=== PATIENT | female | born 1985 | race Caucasian/White ===

== ENCOUNTER 2020-04-27 06:13 | Outpatient (REF) | payer BC, SELFPAY ==
[2020-04-27 11:12] LABS: Hematocrit 39.2 % (37-47); Hemoglobin 12.8 g/dl (12.0-16.0); Mean Corpuscular HGB Conc 32.7 g/dl (31.0-35.0); Mean Corpuscular Hemoglobin 30.8 pg (27.0-33.0); Mean Corpuscular Volume 94.5 fL (80-98); Mean Platelet Volume 11.5 fL (9.4-12.3); Platelet Count 259 X10*3/uL (160-400); Red Blood Count 4.15 X10*6/uL (4.20-5.50); Red Cell Distribution Width 12.5 % (11.0-16.0); White Blood Count 4.6 X10*3/uL (4.8-10.8)
[2020-04-27 11:27] LABS: Glucose Urine UA NEG (NEG); Leukocyte Esterase Urine NEG (NEG); Nitrite Urine NEG (NEG); Specific Gravity - Urine 1.015 (1.005-1.025); Urine Blood NEG (NEG); Urine Ketones NEG (NEG); Urine Protein NEG (NEG-TRACE)
[2020-04-27 11:33] LABS: Appearance Urine CLOUDY; Color Urine YELLOW
[2020-04-27 11:51] LABS: Alanine Aminotransferase 16 U/L (0-31); Albumin Level 4.4 g/dL (3.5-5.0); Alkaline Phosphatase 72 U/L (39-117); Anion Gap 11 (12-20); Aspartate Amino Transferase 22 U/L (5-31); Bilirubin Direct 0.3 mg/dL (0.0-0.5); Bilirubin Total 0.7 mg/dL (0.0-1.0); Blood Urea Nitrogen 12 mg/dL (9-16); Calcium 9.1 mg/dL (8.4-10.2); Carbon Dioxide 31 mmol/L (22-29); Chloride 103 mmol/L (96-108); Cholesterol 150 mg/dL; Estimated Glomerular Filt Rate > 60; Glucose Fasting 84 mg/dL (60-99); HDL Cholesterol 62 mg/dL; LDL Cholesterol Calculated 76 mg/dl; Potassium 4.4 mmol/l (3.3-5.1); Sodium 141 mmol/L (135-145); Total Protein 6.4 g/dL (6.5-8.0); Triglycerides 62 mg/dL
[2020-04-27 11:58] LABS: Thyroid Stimulating Hormone 1.83 mIU/mL (0.32-4.0)
[2020-04-27 12:06] LABS: TSH reflex Free T4 1.84 mIU/mL (0.32-4.0)
== END 2020-04-27 06:14 | disposition home or self-care (01) ==
LOC: HO.HMGCLDS 06:13
PROVIDERS: PCP Internal Medicine; Visit Provider Hospitalist
DX: Z00.00 Encounter for general adult medical examination without abnormal findings (principal)
CPT/HCPCS: 36415; 80048; 80061; 80076; 81003; 84443; 85027

== ENCOUNTER 2020-07-06 07:57 | Outpatient (REF) | payer BC, SELFPAY ==
[2020-07-06 10:44] LABS: HCG Quantitative < 2 mIU/mL; TSH reflex Free T4 1.91 mIU/mL (0.32-4.0)
[2020-07-07 06:58] LABS: Prolactin 15.7 ng/mL
== END 2020-07-06 07:58 | disposition home or self-care (01) ==
LOC: HO.LAB 07:57
PROVIDERS: PCP Internal Medicine; Referring Provider Internal Medicine; Visit Provider Advanced Practice Midwife
DX: Z01.419 Encounter for gynecological examination (general) (routine) without abnormal findings (principal); N64.3 Galactorrhea not associated with childbirth
CPT/HCPCS: 84146; 84443; 84702

== ENCOUNTER 2020-10-15 08:46 | Outpatient (REF) | payer BC, SELFPAY | END 2020-10-15 08:47 | disposition home or self-care (01) | LOC: HO.LAB 08:46 | PROVIDERS: Visit Provider Internal Medicine | DX: Z20.822 Contact with and (suspected) exposure to COVID-19 (principal) | CPT/HCPCS: 36415; C9803; U0003; U0005 ==

== ENCOUNTER 2020-10-19 14:56 | Outpatient (REF) | payer BC, SELFPAY ==
[2020-10-20 08:44] LABS: CT PCR NOT DETECTED (Not Detect.); NG PCR NOT DETECTED (Not Detect.)
== END 2020-10-19 14:57 | disposition home or self-care (01) ==
LOC: HO.LAB 14:56
PROVIDERS: Visit Provider Advanced Practice Midwife
DX: Z30.433 Encounter for removal and reinsertion of intrauterine contraceptive device (principal)
CPT/HCPCS: 58300; 58301; 81025; 87491; 87591

== ENCOUNTER → 2021-02-24 15:19 | Outpatient (BNVA) | payer BC, SELFPAY | PROVIDERS: PCP Internal Medicine; Visit Provider Surgery | DX: K64.8 Other hemorrhoids (principal) | CPT/HCPCS: 46600 ==

== ENCOUNTER 2021-03-15 07:05 | Day surgery (SDC) | payer BC, SELFPAY ==
[2021-03-08 09:30] VITALS: BMI 22.1
--- NOTE | 2021-03-14 08:35 | P.CONAN_ITS ---
Documented by User: Savana Jin NP 03/14/21 08:36 HPI - Anesthesia Eval Consult details Narrative: 36yo F for EUA, Hemorrhoidectomy PMFSH Active Problems Active Problems: All Active Problems (Updated 03/08/21 @ 09:29 by Elizabeth Macedo RN) Well woman exam with routine gynecological exam (Acute) Encounter for removal and reinsertion of intrauterine contraceptive device (IUD) (Acute) Encounter for insertion of mirena IUD (Acute) Hemorrhoid (Acute) Prolapsed hemorrhoids (Acute) Galactorrhea (Acute) Past Medical History Medical History Carpal tunnel syndrome Constipation COVID-19 vaccine series completed Depression Galactorrhea Prolapsed hemorrhoids Family History Family History Paternal Grandmother Breast cancer Cervical cancer Paternal Grandfather Colon cancer Surgical History Surgical History No pertinent past surgical history Social History Social History Are you a primary respiratory care specialist to a significant other at home: No Do you presently have visiting nurse or other home services: No Alcohol intake: never Patient Tobacco Use Status: Never used Tobacco Use of substances other than those prescribed or required for medical reasons: No Substance Use Type Other:: Former Binge drinker- no ETOH for > 1 yr Have you been hit, kicked, punched, or otherwise hurt by someone within the past year? If so, by whom?: No Are you DNR?: No Advance Directives: No Advance Directives Information Provided: No Advance Directives on File: No Recently lost weight without trying: No Eating poorly because of decreased appetite: No Nutrition Risks: No Nutritional Risk Patient : No FDLMP: yrs ago : No Poor oral hygiene: No Sexual orientation: Straight/Heterosexual Gender identity: Female Meds Allergies Allergy/AdvReac Type Severity Reaction Status Date / Time No Known Allergies Allergy Verified 02/24/21 15:34 Home Medications Medication Instructions Recorded Confirmed Last Taken Type fluoxetine 40 mg capsule 40 mg PO DAILY 07/06/20 03/08/21 Unknown History gabapentin 300 mg capsule 300 mg PO BEDTIME 07/06/20 03/08/21 Unknown History lamotrigine 200 mg tablet 200 mg PO DAILY 07/06/20 03/08/21 Unknown History hydrocortisone acetate 25 mg 25 mg [place] TID ea 07/09/20 03/08/21 Unknown History rectal suppository levonorgestrel 20 mcg/24 hours (6 INTRAUTERINE 10/19/20 02/24/21 Unknown History yrs) 52 mg intrauterine device (Mirena) quetiapine 50 mg tablet 50 mg PO DAILY 10/19/20 03/08/21 Unknown History Exam Exam Date and Time: March 14, 2021 0835 Height,Weight and Vital Signs: Height 5 ft 8 in Weight 65.998 kg Assessment and Plan Assessment Anesthesia Assessment: Chart Reviewed Documented by User: Tia Winston MD 03/15/21 07:45 [facility] Past Medical History Medical History Carpal tunnel syndrome Constipation COVID-19 vaccine series completed Depression Galactorrhea Prolapsed hemorrhoids Family History Family History Paternal Grandmother Breast cancer Cervical cancer Paternal Grandfather Colon cancer Surgical History Surgical History No pertinent past surgical history History of Problems with Anesthesia: No Social History Social History Are you a primary respiratory care specialist to a significant other at home: No Do you presently have visiting nurse or other home services: No Alcohol intake: never Patient Tobacco Use Status: Never used Tobacco Use of substances other than those prescribed or required for medical reasons: No Substance Use Type Other:: Former Binge drinker- no ETOH for > 1 yr Have you been hit, kicked, punched, or otherwise hurt by someone within the past year? If so, by whom?: No Are you DNR?: No Advance Directives: No Advance Directives Information Provided: No Advance Directives on File: No Recently lost weight without trying: No Eating poorly because of decreased appetite: No Nutrition Risks: No Nutritional Risk Patient : No FDLMP: yrs ago : No Poor oral hygiene: No Sexual orientation: Straight/Heterosexual Gender identity: Female Meds Allergies Allergy/AdvReac Type Severity Reaction Status Date / Time No Known Allergies Allergy Verified 02/24/21 15:34 Home Medications Medication Instructions Recorded Confirmed Last Taken Type fluoxetine 40 mg capsule 40 mg PO DAILY 07/06/20 03/08/21 Unknown History gabapentin 300 mg capsule 300 mg PO BEDTIME 07/06/20 03/08/21 Unknown History lamotrigine 200 mg tablet 200 mg PO DAILY 07/06/20 03/08/21 Unknown History hydrocortisone acetate 25 mg 25 mg [place] TID ea 07/09/20 03/08/21 Unknown History rectal suppository levonorgestrel 20 mcg/24 hours (6 INTRAUTERINE 10/19/20 02/24/21 Unknown History yrs) 52 mg intrauterine device (Mirena) quetiapine 50 mg tablet 50 mg PO DAILY 10/19/20 03/08/21 Unknown History Exam Airway Mallampati Class: I TM Dist: >3cm Neck ROM: Full Loose/Missing/Broken Teeth: No Heart: RRR Lungs: CTA Assessment and Plan Assessment Anesthesia Assessment: Anesthesia Plan Discussed Final Anesthetic Review History of Problems with Anesthesia: No NPO: Yes ASA Class: I Final Preanesthetic Review: Meds/Allgs Chart Reviewed, Consent Obtained/Reviewed and Anes Risks/Benef Reviewed Patient Risk: Low Procedure Risk: Intermediate Anesthetic Plan Anesthetic Plan: GA Disposition: Standard PACU
[2021-03-15] VITALS (10 sets, daily range): BP systolic 93–127; BP diastolic 43–67; PULSE 69–84; RESP 16–18; TEMP 36.2–36.5; O2SAT 94–100
[2021-03-15 07:22] LABS: UPreg QC Valid YES; Urine Pregnancy NEGATIVE (NEGATIVE)
--- NOTE | 2021-03-15 07:33 | MHC.SHP ---
Pre-Procedural Eval Section A Date of Service: 03/15/21 Section B Chief Complaint: Prolapsed hemorrhoids Allergies: Allergies Allergy/AdvReac Type Severity Reaction Status Date / Time No Known Allergies Allergy Verified 02/24/21 15:34 Plan I have reviewed the history and physical and performed a pertinent physical examination on my patient. No changes have occurred unless specified.
[2021-03-15] MEDS: Lactated Ringers 1,000 ML 100 ML IVCONT (07:36)
--- NOTE | 2021-03-15 08:56 | P.OP_ITS ---
Operative Note Operative Note Date of Service: 03/15/21 Narrative: Preop diagnosis: internal and external hemorrhoids, with prolapse and pain Postop diagnosis: The same Procedure: Exam under anesthesia hemorrhoidectomy x2 columns Surgeon: Franc Padron MD Explosives Handler: ZHENG Jarvis student The patient is a 56-year-old female who has had chronic problems with hemorrhoids with frequent prolapse, pain and discomfort. 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 She understood technique of the procedure. She was aware of the risks, benefits, and alternatives She was brought to the operating room and placed in prone heather-knife position under general anesthesia via endotracheal tube. The buttocks were retracted with wide tape laterally. The perianal area was prepped and draped in the usual sterile fashion. A surgical time-out was done. The patient received Cefotan 2 g IV preoperatively I infiltrated the perianal area with lidocaine 1%. Examination of the perianal area revealed small external hemorrhoids. I inserted the Gold- Pitts retractor and examined the anal canal circumferentially. There was note of relatively bulky mixed internal and external hemorrhoidal columns, 1 on the left and 1 on the right. This also appeared to prolapse easily. I applied a Cope grasper at the hemorrhoidal column on the left. I made a urfpym-sc-kxacu stitch at its pedicle distal to the dentate line with a chromic 3-0. I made an incision around this hemorrhoidal column to the perianal skin using blade 15. And excised this hemorrhoidal column above the plane of sphincters using scissors, with care being taken so as to ensure that we were staying above the plane of the sphincter muscles. I closed this incision with a running chromic 3-0 stitch with additional hemostatic tlmnil-nz-smrxa sutures being placed I then applied a Cope grasper again at the hemorrhoidal column on the right side. I made a bfybik-hv-vgfme stitch at its pedicle using chromic 3-0, and made incision around this hemorrhoidal column to the perianal skin. I excised this hemorrhoidal column above the plane of sphincters using scissors. I closed this incision with a running chromic 3-0 stitch. I observed for hemostasis. Once hemostasis was ensured, I proceeded to infiltrate the perianal area with Marcaine 0.5% for postop analgesia. I applied a Gelfoam packing into the anal canal for additional hemostasis The procedure was then completed The patient tolerated procedure well. There were no complication noted. Initial and final counts of sponges and instruments were correct. Estimated blood loss about 20 cc. The patient was then extubated without difficulty and transferred to the recovery room with stable vital signs.
--- NOTE | 2021-03-15 09:01 | P.BOP_ITS ---
Brief Operative Note Date of Service: 03/15/21 Pre-op diagnosis: Internal and external hemorrhoid columns with prolapse Post-op diagnosis: same Procedure: Exam under anesthesia hemorrhoidectomy x2 Surgeon: Franc Padron MD Anesthesia: GETA Was an Critical Care Technician used for this Procedure?: No Estimated blood loss (mL): 20 Pathology: other (Hemorrhoids) Condition: stable Disposition: PACU
[2021-03-15] MEDS: oxyCODONE HCl Immed Release 5 MG TABLET 10 MG PO (09:12)
[2021-03-15] MEDS: fentaNYL citrate/PF 100 MCG/2 ML VIAL 50 MCG IVPUSH (09:38)
== END 2021-03-15 11:05 | disposition home or self-care (01) ==
PROVIDERS: Nurse Practitioner; Visit Provider Surgery
PROC: (CPT 46260; principal; 2021-03-15 08:40)
DX: K64.8 Other hemorrhoids (principal); K64.4 Residual hemorrhoidal skin tags; K59.00 Constipation, unspecified; F32.9 Major depressive disorder, single episode, unspecified; Z79.899 Other long term (current) drug therapy
CPT/HCPCS: 46260; 81025; 88304; J0131; J1100; J1885; J2250; J2405; J3010

== ENCOUNTER → 2021-03-24 09:45 | Outpatient (BNVA) | payer BC, SELFPAY | PROVIDERS: Referring Provider Internal Medicine; Visit Provider Surgery ==

== ENCOUNTER 2025-06-11 09:24 | Outpatient (AMB) | payer BC, SELFPAY ==
--- NOTE | 2025-06-11 09:29 | MHC.OFFVIS ---
Intake Visit Reasons: 6 months f/u Allergies No Known Allergies Allergy (Verified 06/11/25 09:33) Medication List - Last Reconciled 06/11/25 by Maria Esther Ch CNP docusate sodium (Colace) 100 mg PO BID fluoxetine 40 mg PO DAILY gabapentin 600 mg PO DAILY hydrocortisone acetate 25 mg SD TID ibuprofen 600 mg PO Q6H PRN lamotrigine 200 mg PO DAILY levonorgestrel (Mirena) intrauterine oxycodone-acetaminophen 5-325 mg (Percocet) 1 tab PO Q4-6H PRN quetiapine 50 mg PO DAILY HPI Comments Details: She was doing okay. 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 Symptoms were well controlled with gabapentin 600mg at bedtime, which her PCP has been filling. She was not hitting or kicking her or the wall in her sleep anymore. Sleep was okay. No medication side effects. Beginning in 10/2024, her noted that she was kicking and punching in her sleep more. She sometimes woke herself up during sleep from punching wall.?Memory stable.? She has a long h/o kicking and violent body jerks and movements in sleep, was sleeping on a couch for 6 yrs. 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 It was also making her drowsy. She has a history of depression, Bipolar disorder, and GERD. She has never had a seizure. No bouts of incontinence during these jerking movements. Some restless feeling in legs at times when relaxing on couch at end of day. Sleeps from 8pm to 3.30am. Hx of some short term memory problems, disorganized and distracted easily. Able to finish project if undisturbed. 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 [facility] Medical History (Updated 06/11/25 @ 09:31 by Maria Esther Ch CNP) REM sleep behavior disorder RLS (restless legs syndrome) COVID-19 vaccine series completed Prolapsed hemorrhoids Galactorrhea Depression Carpal tunnel syndrome Constipation Surgical History History of hemorrhoidectomy No pertinent past surgical history Family History Paternal Grandmother Breast cancer Cervical cancer Paternal Grandfather Colon cancer Social History Are you a primary skin care instructor to a significant other at home: No Do you presently have visiting nurse or other home services: No Alcohol intake: never Comment: medicated for pain, see MAR Patient Tobacco Use Status: Never used Tobacco Sexual orientation: Straight/Heterosexual Gender identity: Female Female Reproductive History Menstrual Age of Menarche: 13 Review of Systems Const Denies chills, Denies daytime sleepiness, Denies difficulty sleeping, Reports fatigue, Denies fever(s), Denies frequent falls, Denies headache(s), Denies increased appetite, Denies poor appetite, Denies snoring, Denies weakness, Denies weight gain and Denies weight loss Eyes Denies loss of vision ENT Denies vertigo, Denies dizziness, Denies headache(s) and Denies neck pain Card Denies chest pain at rest, Denies chest pain with activity, Denies syncope, Denies leg edema, Denies palpitations, Denies dyspnea and Denies dyspnea on exertion Resp Denies cough, Denies dyspnea, Denies dyspnea on exertion and Denies snoring GI Denies abdominal pain, Denies constipation, Denies heartburn, Denies diarrhea and Denies nausea Denies urinary frequency, Denies urinary incontinence and Denies urinary urgency Musc Denies abnormal gait, Denies back pain, Denies myalgias, Denies arthralgias, Denies neck pain, Denies numbness and Denies tingling Neuro Denies abnormal gait, Denies vertigo, Denies dizziness, Denies syncope, Denies frequent falls, Denies headache(s), Denies lack of coordination, Denies loss of vision, Denies memory loss, Denies numbness, Denies Other visual disturbances, Reports restless legs, Denies seizure-like activity, Denies tingling, Denies paresthesias, Denies tremor(s) and Denies weakness Psych Reports anxiety, Denies depression, Denies auditory hallucinations, Denies memory loss and Denies visual hallucinations Endo Reports fatigue and Denies palpitations Physical Exam Const Other: General Appearance:? normal, in no acute distress. Heart:? S1, S2 normal, no murmurs. Lungs:? clear anteriorly and posteriorly. Musculoskeletal:? normal. Extremities:? no edema. Psych:? alert, oriented, cognitive function intact, cooperative with exam. Neuro Other: Abnormal Neurological Findings:?none.? Mental Status: alert and oriented X 3. Normal attention, orientation, memory, and affect. Cranial Nerves: Pupils are equal, round, and reactive to light. External ocular muscles are intact. Visual aguila are full, no ptosis. Face is symmetrical, no facial weakness or droop. Facial sensations are normal. Tongue protrudes in midline. Palate elevates symmetrically. Shoulder shrugging is normal Motor Examination: Normal muscle tone, bulk and strength. No atrophy or fasciculations. No drift of the extended upper extremities. DTR 2+. Plantars are flexor. Sensory Exam: Normal light touch, temperature, pinprick, vibration, and joint-position sensations. Rhomberg sign is absent. Coordination: No ataxia. No titubation. Gait Exam: Within normal limits. Cerebellar Signs: [id number] and upej-[id number] is normal. Extrapyramidal System: No tremor, rigidity with normal facial expressions. No bradykinesia. No bradyphrenia. Normal arm swing and posture. No propulsion or retropulsion. Speech: Normal. Results Reviewed Results Reviewed: 09/16/14 This awake and light sleep EEG is within normal limits Assessment & Plan Assessment & Plan (1) REM sleep behavior disorder: Code(s): G47.52 - REM sleep behavior disorder Category: Medical Plan: Symptoms were well controlled with gabapentin 600mg at bedtime, which her PCP has been filling and she did not have any other concerns at this time. Follow up as needed. (2) RLS (restless legs syndrome): Code(s): G25.81 - Restless legs syndrome Category: Medical Plan . Coding Level of Care Code Est Pt Level 3 (41206) Diagnoses REM sleep behavior disorder G47.52 RLS (restless legs syndrome) G25.81
--- OUTSIDE RECORDS SUMMARY | 2025-06-11 12:38 | XMS_ITS | Patient Health Record ---
Author Organization [facility] Address [address] [id number] Care Team Providers Care Ultrasonic Solderer Name Role Phone Jennifer Tomlin Primary Care Provider [facility] Unavailable [phone] Allergies No Known Allergies Results Component Value Reference Range Notes CBC With Differential/Platel [id number] Reviewed date:09/17/2024 11:05:10 PM Interpretation: Performing Lab:[facility] [place], [address] [place] [address], [place], Phone - [phone], Director - Brooke Notes/Report: WBC 5.4 3.4-10.8 x10E3/uL RBC 4.19 3.77-5.28 x10E6/uL Hemoglobin 12.9 11.1-15.9 g/dL Hematocrit 38.2 34.0-46.6 % MCV 91 79-97 fL MCH 30.8 26.6-33.0 pg MCHC 33.8 31.5-35.7 g/dL RDW 11.6 11.7-15.4 % Platelets 290 150-450 x10E3/uL Neutrophils 54 Not Estab. % Lymphs 36 Not Estab. % Monocytes 7 Not Estab. % Eos 2 Not Estab. % Basos 1 Not Estab. % Neutrophils (Absolute) 3.0 1.4-7.0 x10E3/uL Lymphs (Absolute) 1.9 0.7-3.1 x10E3/uL Monocytes(Absolute) 0.4 0.1-0.9 x10E3/uL Eos (Absolute) 0.1 0.0-0.4 x10E3/uL Baso (Absolute) 0.1 0.0-0.2 x10E3/uL Immature Granulocytes 0 Not Estab. % Immature Grans (Abs) 0.0 0.0-0.1 x10E3/uL Measles/Mumps/Rubella Immuni [id number] Reviewed date:09/17/2024 11:05:11 PM Interpretation: Performing [facility] [place], [address] [facility], Phone - [phone], Director - [facility] Notes/Report: Rubella Antibodies, IgG 2.87 Immune >0.99 inde x Non-immune <0.90 Equivocal 0.90 - 0.99 Immune >0.99 Measles Antibodies, IgG 21.7 Immune >16.4 AU/m L Negative <13.5 Equivocal 13.5 - 16.4 Positive >16.4 Presence of antibodies to Rubeola is presumptive evidence of immunity except when acute infection is suspected. Mumps Abs, IgG 73.7 Immune >10.9 AU/mL Negative <9.0 Equivocal 9.0 - 10.9 Positive >10.9 A positive result generally indicates past exposure to Mumps virus or previous vaccination. Vitamin D, 55-Locggdd-[id number] Reviewed date:09/17/2024 11:05:11 PM Interpretation: Performing Lab:[facility], [address] [place] [address], [place], Phone - [phone], Director - [facility] Notes/Report: Vitamin D, 25-Hydroxy 49.3 30.0-100.0 ng/mL Vitamin D deficiency has been defined by the Collins of Medicine and an Endocrine Society practice guideline as a level of serum 25-OH vitamin D less than 20 ng/mL (1,2). The Endocrine Society went on to further define vitamin D insufficiency as a level between 21 and 29 ng/mL (2). 1. IOM (Collins of Medicine). 2010. Dietary reference intakes for calcium and D. [place]: The National Academies Press. 2. Parvez MF, Vinny NC, Dell SALAZAR, et al. Evaluation, treatment, and prevention of vitamin D deficiency: an Endocrine Society clinical practice guideline. JCEM. 2010; 96(7):1911-30. HCV Antibody RFX to Quant PC [id number] Reviewed date:09/17/2024 11:05:11 PM Interpretation: Performing Lab:[facility] [place], [address] [place] [address], Phone - [phone], Director - Brooke Notes/Report: HCV Ab Non Reactive Non Reactive Interpretation: Not infected with HCV unless early or acute infection is suspected (which may be delayed in an immunocompromised individual), or other evidence exists to indicate HCV infection. Comp. Metabolic Panel ([id number] Reviewed date:09/17/2024 11:05:11 PM Interpretation: Performing Lab:[facility], [address] [place] [address], Phone - [phone], Director - Brooke Notes/Report: Glucose 92 70-99 mg/dL BUN 8 6-24 mg/dL Creatinine 0.89 0.57-1.00 mg/dL eGFR 84 >59 mL/min/1.73 BUN/Creatinine Ratio 9 9-23 Sodium 141 134-144 mmol/L Potassium 3.9 3.5-5.2 mmol/L Chloride 100 96-106 mmol/L Carbon Dioxide, Total 24 20-29 mmol/L Calcium 9.6 8.7-10.2 mg/dL Protein, Total 6.6 6.0-8.5 g/dL Albumin 4.9 3.9-4.9 g/dL Globulin, Total 1.7 1.5-4.5 g/dL Bilirubin, Total 0.4 0.0-1.2 mg/dL Alkaline Phosphatase 83 44-121 IU/L AST (SGOT) 27 0-40 IU/L ALT (SGPT) 18 0-32 IU/L LP+Non-HDL Cholesterol-[id number] 5 Reviewed date:09/17/2024 11:05:11 PM Interpretation: Performing Lab:[facility], [facility], Phone - [phone], Director - Brooke Notes/Report: Cholesterol, Total 172 100-199 mg/dL Triglycerides 53 0-149 mg/dL HDL Cholesterol 79 >39 mg/dL VLDL Cholesterol Kushal 11 5-40 mg/dL LDL Chol Calc (NIH) 82 0-99 mg/dL Non-HDL Cholesterol 93 0-129 mg/dL UA/M w/rflx Culture, Routine -[id number] Reviewed date:09/17/2024 11:05:11 PM Interpretation: Performing Lab:[facility], [address] [place] [address], Phone - [phone], Director - Brooke Notes/Report: Specific [place] 1.010 1.005-1.030 pH 7.0 5.0-7.5 Urine-Color Yellow Yellow Appearance Clear Clear WBC Esterase Trace Negative Protein Negative Negative/Trace Glucose Negative Negative Ketones Negative Negative Occult Blood Negative Negative Bilirubin Negative Negative Urobilinogen,Semi-Qn 0.2 0.2-1.0 mg/dL Nitrite, Urine Negative Negative Microscopic Examination See below: Micr oscopic was indicated and was performed. Urinalysis Reflex This speci men has reflexed to a Urine Culture. WBC 0-5 0 - 5 /hpf RBC 0-2 0 - 2 /hpf Epithelial Cells (non renal) 0-10 0 - 10 /hpf Casts None seen None seen /lpf Bacteria Few None seen/Few Urine Culture, Routine Final report Result 1 Culture shows less than 10,000 colony forming units of bacteria per milliliter of urine. This colony count is not generally considered to be clinically significant. TISSUE EXAM Reviewed date:10/17/2024 12:41:59 PM Interpretation: Performing Lab: Notes/Report: Final Diagnosis A. Cecum, polyps x 2: Sessile serrated lesions, fragmented. B. Ascending Colon, polyp x 1: Sessile serrated lesion, fragmented. C. Sigmoid Colon, polyps x 2: Sessile serrated lesions, fragmented. Gross Description A. Large Intestine, Cecum, polyp x 2: Labeled colon cecum polyp x 2 . Received in formalin are seven irregular tavarez mucosal tissue fragments, ranging from 0.1 cm to 0.8 cm in greatest dimension, which are wrapped in paper and submitted in toto in one cassette, seven pieces, multiple levels on one slide. B. Large Intestine, Right/Ascending Colon, polyp x 1: Labeled ascending colon polyp x 1 . Received in formalin are seven irregular tavarez mucosal tissue fragments, ranging from 0.1 cm to 0.8 cm in greatest dimension, which are wrapped in paper and submitted in toto in one cassette, seven pieces, multiple levels on one slide. LEA C. Large Intestine, Sigmoid Colon, polyp x 2: Labeled colon polyp x 2 . Received in formalin are four irregular tavarez mucosal tissue fragments, ranging from 0.1 cm to 1.1 cm in greatest dimension. The largest fragment is inked black and bisected. The specimen is wrapped in paper and entirely submitted in one cassette, five pieces, multiple levels on one slide. LEA Disclaimer Unless otherwise specified, all tissue is 10% NB formalin fixed and paraffin embedded. MM Digital Mammo Screening Reviewed date:03/17/2025 08:00:09 AM Interpretation: Performing Lab: Notes/Report: PROCEDURE: MM Digital Mammo Screening INDICATION: Screening. No known palpable abnormalities. COMPARISON: Dating back to 03/07/2024 TECHNIQUE: Full-field digital CC and MLO 3D tomosynthesis images of both breasts were acquired. Computer-aided detection (CAD) was utilized in the interpretation of this study. DENSITY: The breasts are heterogeneously dense, which may obscure small masses. FINDINGS: No suspicious masses, suspicious microcalcifications, or areas of architectural distortion are seen in either breast to suggest malignancy. IMPRESSION: No mammographic evidence of malignancy. RECOMMENDATION: Annual mammographic screening BI-RADS: 1 (Negative) Lay letter mailed to patient WSN: [id number] Ordering Physician: Jennifer Tomlin Dictated By: Marco [place], Dennis Gibson Reason For Referral Reason Patient's paternal g randfather with history of colon cancer faxed Diagnosis 1 Family history of ma lignant neoplasm of digestive organs (Z80.0) Referral Organization [facility] Referring Provider First Name Jennifer Referring Provider Last Name Nabor Referring Provider Speciality Nurse Prac leighioner Referred Provider Sofia Givens Referred Provider Specialty Gastroentero logy General Notes Grecia OLVERA 03/2025 12:31:45 PM >faxed, Grecia OLVERA 08/01/2024 09:31:23 AM >BCBS Reference#: [id number], Grecia OLVERA 08/05/2024 02:39:43 PM >Refaxed referral with ins referral attached, Grecia OLVERA 02/24/2025 02:55:26 PM >notes in chart Referral Priority Routine Reason appt 03/03/25 Diagnosis 1 First degree hemorrh oids (K64.0) Referral Organization [facility] Referring Provider First Name Jennifer Referring Provider Last Name Nabor Referring Provider Speciality Nurse Prac titioner Referred Organization [facility] enter Referred Provider Vince Brooks Referred Address [address] [facility],[place], [place],[id number],[place] Referred Provider Specialty Colorectal S urgery General [facility] 09:18:09 AM >Completed [facility] referral form and faxed, [facility] 02/24/2025 02:57:32 PM >Booked at [facility] 03/[address] vince Brooks, [facility] Grecia 03/03/2025 04:39:53 PM >Reference#: [id number] Referral Priority Routine Referral Appointment Date 03/04/2025 Medications Medication SIG (Take, Route, Frequency, Duration) Notes Start Date End Date Status Gabapentin 600 MG TAKE 1 TABLET BY ARNOLD TH EVERY DAY; Duration: 30 Active FLUoxetine HCl 40 MG TAKE 1 CAPSULE BY M OUTH EVERY DAY; Duration: 90 Active lamoTRIgine 200 MG TAKE 1 TABLET BY ARNOLD TH EVERY DAY; Duration: 60 Active QUEtiapine Fumarate 50 MG TAKE 1 TABLET BY MOUTH EVERYDAY AT BEDTIME Active Mirena (52 MG) 20 MCG/DAY as directed Intrauterine 07/31/2024 Active Immunizations Vaccine Route Administration Date Status Comme nts *Influenza-Quadrivalent IM Intramuscular 07/18/2023 Admini stered *Td Unknown 06/06/2019 Administered JLTLO-25-Xzstrk Vaccine Unknown 11/20/2020 Administered WVGTI-12-Kqwuyo Vaccine Unknown 12/11/2020 Administered Heplisav-B Unknown 11/04/2024 Administered Heplisav-B Unknown 12/12/2024 Administered MMR Unknown 07/26/2023 Administered Varicella Unknown 11/06/2024 Administered Social History Tobacco Use: Social History Observation Description Date Details (start date - stop date) Never Smoker NA - NA Tobacco Use/Smoking Question Answer Notes Are you a nonsmoker Additional Findings: Tobacco Non-User Aggressive non-smoker AUDIT-C (Standard) Question Answer Notes Did you have a drink containing alcohol in the p ast year? No Points 0 Interpretation Negative Problems Problem Type SNOMED Code ICD Code Onset Dates Problem Status W/U Status Risk Notes Problem Vitamin D deficiency (65986501) Vitamin D deficiency, unspecified (E55.9) Active confirmed Problem Bipolar affective disorder, currently manic, mild (790902944) Bipolar disorder, current episode manic without psychotic features, mild (F31.11) Active confirmed Problem Restless legs syndrome (28161133) Restless legs syndrome (G25.81) Active confirmed Problem First degree hemorrhoids (813501138) First degree hemorrhoids (K64.0) Active confirmed Problem Manic bipolar I disorder in partial remission (88982310) Bipolar disorder, in partial remission, most recent episode manic (F31.73) Problem resolved confirmed Vital Signs Heart Rate 96 /min 02/26/2025 Temperature 96.2 degrees Fahrenheit 02/26/2025 Blood pressure diastolic 66 mm Hg 02/26/2025 Oximetry 99 % 02/26/2025 Height 5 ft 8 in in 02/26/2025 Blood pressure systolic 112 mm Hg 02/26/2025 Weight 138 lbs 02/26/2025 BMI 20.98 kg/m2 02/26/2025 Procedures Procedure Date Ordered Date Performed Result Body Sit e COLONOSCOPY 10/16/2024 10/16/2024 N/A Encounters Encounter Location Date Provider Diagnosis [facility] [address] [id number] 07/31/2024 Jennifer Tomlin Encounter for genera l adult medical examination without abnormal findings Z00.00 ; Bipolar disorder, in partial remission, most recent episode manic F31.73 ; Restless legs syndrome G25.81 ; Vitamin D deficiency, unspecified E55.9 ; Encounter for screening for malignant neoplasm of colon Z12.11 ; Family history of malignant neoplasm of digestive organs Z80.0 ; Encounter for screening mammogram for malignant neoplasm of breast Z12.31 ; Encounter for screening for cardiovascular disorders Z13.6 ; Encounter for immunization Z23 ; Encounter for antibody response examination Z01.84 ; Encounter for screening for other viral diseases Z11.59 ; Encounter for screening for malignant neoplasm of cervix Z12.4 and Encounter for screening examination for other mental health and behavioral disorders Z13.39 [facility] [address] [id number] 02/26/2025 Jennifer Tomlin Bipolar disorder, current episode manic without psychotic features, mild F31.11 and Restless legs syndrome G25.81 [facility] [address] [place] [id number] 11/20/2024 Jennifer Tomlin First degree hemorrhoids K64.0 and Other constipation K59.09 [facility] [address] [id number] 11/15/2024 Jennifer Ramirez MD [address] [id number] 09/20/2024 Jennifer Ramirez MD [address] [id number] 01/02/2025 Jennifer Ramirez MD [address] [id number] 12/22/2024 Jennifer Tomlin First degree hemorrhoids K64.0 [facility] [address] [id number] 11/03/2024 Jennifer Ramirez MD [address] [id number] 07/31/2024 Jennifer Ramirez MD [address] [id number] 07/24/2024 Jennifer Ramirez MD [address] [id number] 06/12/2024 Jennifer Ramirez MD [address] [id number] 04/25/2025 Jennifer Ramirez MD [address] [id number] 02/26/2025 Jennifer Ramirez MD [address] [id number] 12/30/2024 Jennifer Tomlin Assessments Encounter Date Diagnosis (ICD Code) Assessment Notes Treatment Notes Treatment Clinical Notes Section Notes 07/31/2024 Bipolar disorder, in partial remission, most recent episode manic (ICD-10 - F31.73) Stable at present time and patient to remain on current medication regimen. She is not currently working with a therapist but is still in connection with her past therapist and can schedule appointment should she feel as though talk therapy would be helpful. Patient aware to follow-up should she feel as though her bipolar symptoms are not well-managed on her current medication regimen 07/31/2024 Encounter for general adult medical examination without abnormal findings (ICD-10 - Z00.00) General healthcare up-to-date. Will obtain updated routine labs.Plan will be for annual in 1 year 11/20/2024 Other constipation (ICD-10 - K59.09) See plan and treatments discussed for further managament 11/20/2024 First degree hemorrhoids (ICD-10 - K64.0) Discussed with pt th e finding of 3 external hemorrhoids that are soft and without any active bleeding noted. Would like pt to increase her water intake and take FiberCon twice a day. Would also like pt to begin MiraLAX once daily to further assist in easier bowel movement to decrease irritation to known hemorrhoids. Patient advised to purchase Tucks pads OTC and place them in the refrigerator. She should apply 1-2 pumps of ProctoFoam to a tucks pads and apply to the rectal areas 3 times a day for further improvement in hemorrhoid discomfort. Pt aware that if these modalities to do help resolve her symptoms, she shoud notify the office a she would benefit from a referral to [facility] surgeon as she completed hemorrhoidectomy in the past from this speciality group 12/22/2024 First degree hemorrhoids (ICD-10 - K64.0) 02/26/2025 Bipolar disorder, current episode manic without psychotic features, mild (ICD-10 - F31.11) Stable at present time and patient feels well-controlled on current medication regimen. Patient to continue taking her medications as prescribed with follow-up as scheduled 02/26/2025 Restless legs syndrome (ICD-10 - G25.81) Stable at present time and patient to remain on her current medication regimen to assist with symptoms. Patient also continue seeing neurology as scheduled 07/31/2024 Restless legs syndrome (ICD-10 - G25.81) Stable at present time and patient to remain on her current medication regimen to assist with symptoms. Patient to remain on current dose of gabapentin as this is also greatly improved her sleep and restlessness overnight 07/31/2024 Vitamin D deficiency, unspecified (ICD-10 - E55.9) Will check level to verify that there is no deficiency 07/31/2024 Encounter for screening for malignant neoplasm of colon (ICD-10 - Z12.11) Reviewed with yefri bloom her grandfather's history of colon cancer and due to this she will be referred to gastroenterology to discuss colonoscopy schedule. Suspect that patient will begin colonoscopies at age 44 but patient is interested in speaking with gastroenterology regarding scheduling due to family history 07/31/2024 Family history of malignant neoplasm of digestive organs (ICD-10 - Z80.0) Discussed with patient her grandfather's colon cancer history and due to this, patient is interested in speaking with a knot borer regarding beginning colon cancer screenings. Referral made to Dr. Givens at this time 07/31/2024 Encounter for screening mammogram for malignant neoplasm of breast (ICD-10 - Z12.31) Patient is up-to-erik e with breast cancer screenings that she completed her mammogram in 202307/31/2024 Encounter for screening for cardiovascular disorders (ICD-10 - Z13.6) Blood pressure stable. Will check for comorbidity of hyperlipidemia and hyperglycemia to further assess risk 07/31/2024 Encounter for immunization (ICD-10 - Z23) Vaccines up-to-date 07/31/2024 Encounter for antibody response examination (ICD-10 - Z01.84) Patient previously lacked immunity and completed an updated MMR series. Will obtain an updated MMR titer to ensure immunity 07/31/2024 Encounter for screening for other viral diseases (ICD-10 - Z11.59) Will screen for hepatitis C as per general recommendation 07/31/2024 Encounter for screening for malignant neoplasm of cervix (ICD-10 - Z12.4) Patient completed he r Pap smear in 2022 and is up-to-date with cervical cancer screenings 07/31/2024 Encounter for screening examination for other mental health and behavioral disorders (ICD-10 - Z13.39) PHQ score reviewed and pt to remain on current medication regimen 07/31/2024 Other Plan Of Treatment Pending Test Test Name Order Date THIN PREP,HPV (>29YR) (DIAG) 07/18/2023 Urinalysis, Complete-[id number] 07/31/2024 Next Appt Details Provider Name:Jennifer Tomlin , 08/06/2025 09:00:00 AM, [address] [facility], [address], [place], [place], [phone], Insurance Providers Payer Name Payer Address Payer Phone Subscriber Number Group Number Insured Name Patient Relationship to Insured Coverage Start Date Coverage End Date [employer] [place] [address] [place] [address] [id number] Perry Baltazar Self - patient is the insured Medical (General) History Medical History History ICD Code bipolar disorder - Type 2 Sleep disturbances (kicking and punching ) Bipolar disorder, in partial remission, most recent episode manic (resolved 02/26/2025) undefined Surgical History Surgery Date(Month/Year) Hemorrhoid removal 03/2021 Hospitalization History Reason Date(Month/Year)
== END 2025-06-11 09:38 | disposition home or self-care (01) ==
LOC: HO.HSM 09:25
PROVIDERS: PCP Nurse Practitioner Family; Referring Provider Nurse Practitioner Family; Visit Provider Registered Nurse
DX: G47.52 REM sleep behavior disorder (principal); G25.81 Restless legs syndrome
CPT/HCPCS: 99213